=== PATIENT | female | born 1960 | race Caucasian/White ===

== ENCOUNTER → 2018-01-19 | Day surgery (SDC) | payer OTHER ==
[2015-11-23 08:10] VITALS: BMI 23.6
--- NOTE | 2018-01-19 11:20 | CP.SDSHP ---
Same Day Surgery H & P - History Proposed Procedure: US guided FNA of RIGHT thyroid nodule Pre-Op Diagnosis: RIGHT thyroid nodule - Allergies Allergies: Allergies No Known Allergies Allergy (Verified 11/23/15 08:09) - Impression Impression: Pt with heterogenous thyroid and right lower pole 2.2 cm nodule. Plan US guided FNA of RIGHT thyroid nodule Pt. Evaluated Today:Candidate for Anesthesia & Procedure: No Short Stay Discharge - Short Stay Discharge Admitting Diagnosis/Reason for Visit: NODULES Disposition: HOME/ ROUTINE
--- NOTE | 2018-01-19 11:21 | PCM.SURG1 ---
Surgeon's Initial Post Op Note - Surgeon's Notes Surgeon: Cody Woodard MD Training Intern: NONE Type of Anesthesia: Local Pre-Operative Diagnosis: RIGHT thyroid nodule Operative Findings: 2.2 cm right thyroid nodule Post-Operative Diagnosis: RIGHT thyroid nodule Operation Performed: US guided FNA of RIGHT thyroid nodule Specimen/Specimens Removed: 25 g FNA x 6 Estimated Blood Loss: EBL {In ML}: 1 Blood Products Given: N/A Drains Used: No Drains Post-Op Condition: Good Date of Surgery/Procedure: 01/19/18 Time of Surgery/Procedure: 20:00
--- NOTE | 2018-01-20 12:05 | US ---
PROCEDURE: Date of Procedure: 01/19/2018 PROCEDURE: 1. Ultrasound guided FNA of right thyroid nodule, CPT 78765 2. Ultrasound guidance for FNA, 21548 Medications: 2cc 1% Lidocaine HISTORY: Enlarged right thyroid nodule. TECHNIQUE: Following informed consent and procedure time-out, a limited ultrasound patient's neck confirmed the presence of a 2.2 cm complex right thyroid nodule which is predominantly solid. After the patient's neck was prepped and draped in the usual sterile fashion, the skin was anesthetized with 1% lidocaine. Ultrasound-guided fine needle aspiration was then performed of the dominant right thyroid nodule. A total of 5 passes were made into the nodule with 25 gauge needle under ultrasound guidance. The FNA specimen was sent for routine pathology. Post biopsy ultrasound showed no hematoma. IMPRESSION: Ultrasound-guided FNA of the dominant right thyroid nodule.
== END | disposition home or self-care (01) ==
LOC: C.SPRAD 09:10
PROVIDERS: ATTEND Radiology Vascular & Interventional Radiology
DX: E04.2 Nontoxic multinodular goiter (principal)

== ENCOUNTER 2018-08-21 11:14 | Outpatient (CLI) | payer OTHER | END 2018-08-21 11:15 | disposition home or self-care (01) | LOC: C.USIC 11:14 ==